=== PATIENT | male | born 1995 | race African-American/Black ===

== ENCOUNTER 2024-11-15 16:27 | Emergency (ER) | payer SELFPAY ==
--- NOTE | ~2024-11-15 | US_ITS ---
EXAMINATION: US venous doppler LE RT DATE: 11/15/2024 17:40 INDICATION: RLE swelling . TECHNIQUE: Grayscale images without and with compression and Doppler images of the right lower extrem ity veins were obtained. COMPARISON: None FINDINGS: The right common femoral vein, profunda (deep) femoral vein, femoral vein, popliteal vein, peroneal v ein, posterior tibial veins, gastrocnemius vein, and greater saphenous vein are patent. IMPRESSION: Patent right lower extremity veins. No evidence of deep venous thrombosis. Reviewed, dictated and finalized at location K.
[2024-11-15 16:34] VITALS: BP 138/93; PULSE 118; RESP 18; TEMP 36.7; O2SAT 100
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
== END 2024-11-16 01:31 | disposition left against medical advice (07) ==
LOC: ANHED 11-16 00:52
PROVIDERS: Emergency Provider Registered Nurse
DX: R60.0 Localized edema (principal)
CPT/HCPCS: 93971; 99284